=== PATIENT | male | born 1955 | race Caucasian/White ===

== ENCOUNTER 2025-02-16 14:32 | Outpatient (OUT) | payer MEDICARE, OTHER, SELFPAY ==
--- OUTSIDE RECORDS SUMMARY | 2025-02-10 07:19 | XMS_ITS | Continuity of Care Document ---
Author Organization [facility] Address [address] [place] [address] Phone Care Team Providers Care Climbing Guide Name Role Phone Telma Morgan APRN Primary Care Provider Telma Morgan APRN Attending Provider Telma Morgan APRN Referring Provider [phone] Community, Outreach Attending Provider Care Teams Patient Care Team Team Status: Active Member Role Status Dates Telma Morgan APRN CARDROOM ATTENDANT-C Primary Care Provider Active Patient Care Team Team Status: Active Member Role Status Dates Telma Morgan APRN CARDROOM ATTENDANT-C Primary Care Provider, Other Provider Active Start: December 02, 2024 Ron Gonzalez MD Attending Provider Active Start: December 02 Visit Care Team Team Status: Inactive Member Role Status Dates Telma Morgan APRN CARDROOM ATTENDANT-C Primary Care Provider, Attending Provider Active Start: December 10, 2024 End: December 10, 2024 Visit Care Team Team Status: Inactive Member Role Status Dates Telma Morgan APRN CARDROOM ATTENDANT-C Primary Care Provider, Referring Provider Active Start: December 13, 2024 End: December 13, 2024 Outreach Community Attending Provider Active Sta rt: December 13, 2024 End: December 13, 2024 Visit Care Team Team Status: Inactive Member Role Status Dates Telma Morgan APRN CARDROOM ATTENDANTFranck Primary Care Provider, Attending Provider Active Start: January 09, 2025 End: January 09, 2025 Patient Care Team Team Status: Inactive Member Role Status Dates LUIZ Rey Primary Care Provider, Attending Provider Active Start: January 21, 2025 End: January 21, 2025 Patient Care Team Team Status: Inactive Member Role Status Dates LUIZ Rey Primary Care Provider Active Start: February 10, 2025 End: February 10, 2025 Jose Juan Aquino MD Attending Provider Active Star t: February 10, 2025 End: February 10, 2025 Chief Complaint and Reason for Visit Chief Complaint Admit Date R01.1 December 02, 2024 1:12 pm Z12.2 December 10, 2024 12:5 7pm CMP PSA December 13, 2024 8:2 2am M47.816 M54.50 Z98.890 January 09, 2025 7:0 9pm Would like to discuss labs/MRI January 21, 2025 10:22am lumbar stenosis February 10, 2025 10:3 9am Reason for Visit Admit Date Bilateral hip pain January 21, 2025 10:22 am Bulging of intervertebral disc between L 4 and L5 January 21, 2025 10:22am History of back surgery January 21, 2025 1 0:22am Hyperlipidemia January 21, 2025 10:22 am Low back pain January 21, 2025 10:22 am Screening for AAA (abdominal aortic aneu rysm) January 21, 2025 10:22am Smoker January 21, 2025 10:22 am Spondylosis of lumbar spine January 21 10:22am Stage 3 chronic kidney disease January 21, 2025 10:22am Lumbar stenosis without neurogenic layla ication February 10, 2025 10:39am Pain of right sacroiliac joint February 10:39am Allergies, Adverse Reactions, Alerts Allergen Type Severity Reaction Last Updated Verified Status Penicillins Adverse Reaction Moderate Fatigued February 102024 10:52am Yes Active Social History Smoking Status Status Start Date End Date Date of Observa tion Current some day smoker Kane finn 2024 1:58pm Observation Status Observation Response Date of Response Patient Sex Male February 10, 2025 11:19am Assigned Sex Male March [birth year] 57 Problems Active Problems Medical Problem Onset Date Status Medicare annual wellness visit, initial Active Screening for prostate cancer Ac tive Screening for colon cancer Activ e Low back pain Active Pain of right sacroiliac joint A ctive Welcome to Medicare preventive visit Active Stage 3 chronic kidney disease A ctive Screening, anemia, deficiency, iron Active Heart murmur Active Hyperlipidemia Active Screening for metabolic disorder Active Screening for lipid disorders Ac tive Bulging of intervertebral disc between L4 and L5 Active History of back surgery Active Bilateral hip pain Active Screening for AAA (abdominal aortic aneurysm) Active Screening for lung cancer Active Central stenosis of spinal canal Active Spondylosis of lumbar spine Acti ve Smoker Active Lumbar stenosis without neurogenic claudication Active Medications Medication Status Dose Units Route Directions Qty Days St art Date Stop Date End Date Instructions Sod Picosulf-Ma g Ox-Citric Ac (Clenpiq) 10 mg-3.5 gram- 12 gram/175 mL solution Disconti nued 175 ML PO Daily 1 December 01, 2024 12:00a m January 21, 2025 10:29 am please follow instructions provided by Dr. Atkinson's office. Multivit With Min-Folic Acid (Centrum Adult 50 Plus) 80 mcg tablet,chew able Active 1 TAB PO Daily November 11, 2024 12:00a m Procedures Procedure Date Performed Status CT lung screening December 10, 2024 12:58pm comple cristina MR lumbar spine wo/w con January 09, 2025 7:25pm co mpleted Relevant Diagnostic Tests and/or Laboratory Data Laboratory Results Test Date/Time Result Interpretation Reference Range Result Comment Performing Site Corrected White Blood Count December 13, 2024 7:46am 10.4 10*3/uL 4.1-10.[address] [facility] [id number] [address] [facility] [address] Red Blood Count December 13, 2024 7:46am 4.75 10*6/uL 3.90-5.[address] [facility] [id number] [address] [facility] [address] Hemoglobin December 13, 2024 7:46am 15.6 g/dL 13.0-17.[address] [facility] [id number] [address] [facility] [address] Hematocrit December 13, 2024 7:46am 46.4 % 38.8-50.[address] [facility] [id number] [address] [facility] [address] Mean Corpuscular Volume December 13, 2024 7:46am 97.7 fL 83.5-[address] [facility] [id number] [address] [facility] [address] Mean Corpuscular Hemoglobin December 13, 2024 7:46am 32.9 pg 27.5-35.[address] [facility] [id number] [address] [facility] [address] Mean Corpuscular Hemoglobin Concent December 13, 2024 7:46am 33.6 g/dL 32.5-35.[address] [facility] [id number] [address] [place] [address] Red Cell Distribution Width December 13, 2024 7:46am 13.7 % 12.0-14.[address] [facility] [id number] [address] [place] [address] Platelet Count December 13, 2024 7:46am 252 10*3/uL 150-[address] [facility] [id number] [address] [place] [address] Mean Platelet Volume December 13, 2024 7:46am 10.7 fL Above high normal 6.6-10.[address] [facility] [id number] [address] [place] [address] Glucose Level December 13, 2024 7:46am 92 mg/dL 70-100 ADA recommended reference rangeRandom Glucose Reference Range is dependent on time and content of last meal. Glucose of more than 200 mg/dL in a nonstressed, ambulatory subject supports the diagnosis of Diabetes Mellitus. [facility] [id number] [address] [facility] [address] Blood Urea Nitrogen December 13, 2024 7:46am 18 mg/dL 7-[address] [facility] [id number] [address] [place], [place] [address] Creatinine December 13, 2024 7:46am 1.50 mg/dL Above high normal 0.70-1.[address] [facility] [id number] [address] [place], [place] [address] Estimated GFR (CKD-EPI) December 13, 2024 7:46am 50.397 mL/Min [facility] [id number] [address] [facility] [address] Sodium Level December 13, 2024 7:46am 142 mmol/L 136-[address] [facility] [id number] [address] [place] [address] Potassium Level December 13, 2024 7:46am 4.8 mmol/L 3.5-5.[address] [facility] [id number] [address] [facility] [address] Chloride Level December 13, 2024 7:46am 106 mmol/L 98-[address] [facility] [id number] [address] [facility] [address] Carbon Dioxide Level December 13, 2024 7:46am 29.1 mmol/L 21.0-31.[address] [facility] [id number] [address] [place] [address] Anion Gap December 13, 2024 7:46am 11.7 mEq/L 6.0-15.[address] [facility] [id number] [address] [place] [address] Calcium Level December 13, 2024 7:46am 9.8 mg/dL 8.6-10.[address] [facility] [id number] [address] [place] [address] Total Protein December 13, 2024 7:46am 7.9 g/dL 6.4-8.[address] [facility] [id number] [address] [place] [address] Albumin December 13, 2024 7:46am 4.3 g/dL 3.5-5.[address] [facility] [id number] [address] [place] [address] Total Bilirubin December 13, 2024 7:46am 0.5 mg/dL 0.3-1.[address] [facility] [id number] [address] [place] [address] Aspartate Amino Transf (AST/SGOT) December 13, 2024 7:46am 19 U/L 13-[address] [facility] [id number] [address] [place] [address] Alanine Aminotransferas e (ALT/SGPT) December 13, 2024 7:46am 15 U/L 7-[address] [facility] [id number] [address] [place], [place] [address] [place] [address] Alkaline Phosphatase December 13, 2024 7:46am 69 U/L 34-[address] [facility] [id number] [address] [facility] [address] Cholesterol Level December 13, 2024 7:46am 205 mg/dL Above high normal 140-200 Chol less than 200 mg/dl low riskChol 201-239 mg/dl borderline riskChol 240 mg/dl and greater high risk [facility] [id number] [address] [facility] [address] HDL Cholesterol December 13, 2024 7:46am 31 mg/dL 23-92 HDL CHOL ATP-III CLASSIFICATION Cardiovascular RiskHDL > or equal to 60 mg/dL LOWHDL < 40 mg/dL HIGH [facility] [id number] [address] [facility] [address] Triglycerides Reflex December 13, 2024 7:46am 154 mg/dL Above high normal 0-149 TRIG ATP III CLASSIFICATIONTRI G less than 150 mg/dL NormalTRIG 150-199 mg/dL Borderline highTRIG 200-500 mg/dL High TRIG greater than 500 mg/dL Very highStandard traceable to the Center for Disease Conrtrol and Prevention (CDC) test method. [facility] [id number] [address] [facility] [address] LDL Cholesterol, Calculated December 13, 2024 7:46am 143 mg/dL Above high normal 0-100 LDL ATP III CLASSIFICATIONLDL less than 100 mg/dL OptimalLDL 100-129 mg/dL Near or above optimalLDL 130-159 mg/dL Borderline highLDL 160-189 mg/dL HighLDL greater than 189 mg/dL Very high [facility] [id number] [address] [facility] [address] VLDL Cholesterol December 13, 2024 7:46am 30 mg/dL [facility] [id number] [address] [facility] [address] Cholesterol/HDL Ratio December 13, 2024 7:46am 6.6 <5.[address] [facility] [id number] [address] [facility] [address] Prostate Specific Antigen Total December 13, 2024 7:46am 3.130 ng/mL 0.000-4.00 0 Serial tumor marker results determined by assays using different manufacturers or methods may not be comparable.[employer] [facility] automotive parts counter associate and method:[place] DXI, CHEMILUMINESCENT IMMUNOASSAY. [facility] [id number] [address] [place] [address] Pharmacy Creatinine Clearance (Chem December 13, 2024 7:46am N/A [facility] [id number] [address] [place] [address] Diagnostic Imaging Reports Author Michele Pabon [facility] Authored December 10, 2024 2:20 pm Report Dictated Date/Time Dictated By Status Radiology Report December 10, 2024 2:20pm Michele lemos Jr DO completed [facility] [place] [address] CT Scan Report Signed Patient: Deny Ramos MR#: [id number] : 1955 Acct:[id number] Age/Sex: 69 / M ADM Date: 5 Loc: [facility] Room: Type: [facility] Attending Dr: FERMIN Rey APRNC Copies to: Telma Morgan APRN, CNP~ Ordering Provider: Telma Morgan APRN, CNP Date of Service: 12/10/24 CT/CT lung screening: Z12.2 CT CHEST WITHOUT CONTRAST, LOW DOSE SCREENING: CLINICAL DATA: A 69-year old current smoker, smoking for 40 pack-years. COMPARISON: None TECHNIQUE: Noncontrast axial CT scan images of the chest were obtained under the low dose screening CT protocol. Coronal and sagittal reconstructed images were also submitted. FINDINGS: Mediastinum : Suboptimal evaluation due to low-dose technique. Thoracic aorta appears normal in caliber. Pulmonary trunk appears nondilated. No pericardial effusion. No lymphadenopathy. The esophagus is grossly unremarkable. Lungs: No focal consolidation, pneumothorax or pleural effusion. Trachea and distal airways appear patent. Diffuse bronchial wall thickening. Emphysematous changes. Scattered lung scarring. No suspicious noncalcified pulmonary nodule or mass. Upper abdomen: No acute findings. Bony thorax and chest wall: Soft tissues surrounding the chest wall demonstrate no acute findings. Osseous structures demonstrate degenerative change. CT/CT lung screening IMPRESSION: NO SUSPICIOUS PULMONARY NODULE OR MASS. LUNG - RADS Version 1.0 Assessment: Category 1, Negative (No nodules and definitely benign nodules). Management: Continue annual lung screening with LDCT in 12 months. Impression dictated by: Michele Pabon Jr., D.OSammy12/10/2024 2:21 PM Dictation Location: [place] [address] Transcribed By: [facility] 12/10/24 1421 Dictated By: Michele Pabon Jr, DO 12/10/24 1420 Signed By: <Electronically signed by Michele Pabon Jr, DO in OV> 12/10/24 1421 Author Inder Velasquez [facility] Authored January 09, 2025 8:58pm Report Dictated Date/Time Dictated By Status Radiology Report January 09, 2025 8:58pm Inder castaneda II MD completed [facility] [place] [address] MRI Report Signed Patient: Deny Ramos MR#: [id number] : 1955 Acct:[id number] Age/Sex: 69 / M ADM Date: 5 Loc: Room: Type: [facility] Attending Dr: Telma Morgan APRN, NP-C Copies to: Telma Morgan APRN, CNP~ Ordering Provider: Telma Morgan APRN, CNP Date of Service: 01/09/25 MR/MR lumbar spine wo/w con: M47.816 MR lumbar spine wo/w con 01/09/2025 7:31 PM SIGNS AND SYMPTOMS: Low back pain, right hip pain PROTOCOL: Multiplanar multisequence MR images of the lumbar spine with and without IV contrast CONTRAST: 15 mL of intravenous ProHance COMPARISON: 12/02/2024. FINDINGS: There is a levoconvex curvature similar to the prior exam. The bones are otherwise in anatomic alignment. There is moderate to severe disc height loss at L2-L3, L3-4, and L5-S1. There is Modic type I endplate edema at L3-L4 and L5-S1. There is Schmorl's node formation in the endplates at L1, L2, L3, and L4. The conus terminates at the inferior endplate of the T12 vertebral body level. No epidural or paraspinous fluid collection is appreciated. Simple appearing cysts are noted in the right renal cortex. No abnormal postcontrast enhancement. At T12-L1: There is a normal disc, central canal, and neural foramen. At L1-L2: There is a broad-based disc bulge with a focal left subarticular disc protrusion. There is mild spinal canal narrowing with mild left neural foraminal stenosis. At L2-L3: There is a broad-based disc bulge with facet hypertrophy and ligament flavum thickening. There is mild spinal canal narrowing with mild bilateral neural foraminal stenosis. At L3-L4: There is a circumferential disc bulge. There is facet hypertrophy and ligamentum flavum thickening. There is mild spinal canal stenosis with moderate left and severe right neural foraminal narrowing. There is mass effect on the exiting right L3 nerve roots. At L4-L5: There is a circumferential disc bulge with facet hypertrophy. There is mild spinal canal stenosis with severe bilateral neural foraminal narrowing and mass effect on the exiting L4 nerve roots bilaterally. At L5-S1: There is a broad-based disc bulge with endplate osteophyte formation on the left. There is facet hypertrophy left greater than right. There is moderate to severe left and moderate right neural foraminal narrowing with mild spinal canal narrowing. There is mild mass effect on the traversing left S1 nerve roots. MR/MR lumbar spine wo/w con IMPRESSION: At L3-L4: There is a circumferential disc bulge. There is facet hypertrophy and ligamentum flavum thickening. There is mild spinal canal stenosis with moderate left and severe right neural foraminal narrowing. There is mass effect on the exiting right L3 nerve roots. At L4-L5: There is a circumferential disc bulge with facet hypertrophy. There is mild spinal canal stenosis with severe bilateral neural foraminal narrowing and mass effect on the exiting L4 nerve roots bilaterally. At L5-S1: There is a broad-based disc bulge with endplate osteophyte formation on the left. There is facet hypertrophy left greater than right. There is moderate to severe left and moderate right neural foraminal narrowing with mild spinal canal narrowing. There is mild mass effect on the traversing left S1 nerve roots. No abnormal postcontrast enhancement. Impression dictated by: Inder Velasquez M.D. 01/09/2025 9:12 PM Dictation Location: [place] [address] Transcribed By: PWS 01/09/252111 Dictated By: Inder Velasquez II, MD 01/09/252057 Signed By: <Electronically signed by Inder Velasquez II, MD in OV> 01/09/252111 Vital Signs Vital Reading Result Reference Range Collection Date/Time Height 71 [in_i] January 21, 2025 10:25am Weight 77.16 kg January 21, 2025 10:25am Body Temperature 97.7 [degF] 97.6-99.0 January 21, 2 025 10:25am Heart Rate 92 /min 60-100 January 21, 2025 10:25am Oxygen saturation by Pulse oximetry 94 % 95-100 January 21, 2025 10:25 am BP Systolic 140 mm[Hg] 100-140 January 21, 2025 10:25am BP Diastolic 82 mm[Hg] 60-100 January 21, 2025 10:25am BMI (Body Mass Index) 23.7 kg/m2 January 212024 10:25am Height 71 [in_i] February 10, 2025 10:51am Weight 77.40 kg February 10, 2025 10:51am BMI (Body Mass Index) 23.8 kg/m2 February 012024 10:51am Advance Directives Advance Directive Response Recorded Date/ Time Advance Directives No May 4:48pm Insurance Providers Guarantor Deny Ramos Address [address] [facility] [address] Contact Info. Home Phone: Payer Policy Id Coverage Id Subscriber's Name Subscriber Id Effective Date Expiration Date [facility] [id number] Deny Ramos [id number] Medicare [id number] Deny Ramos [id number] [facility] [id number] Deny Ramos [id number] Encounters Encounter Location(s) Arrival/Admit Date Discharge/Depart Date Provider(s) Non-patient / Non-visit [facility] December 02, 2024 1:12pm Ron Gonzalez MD Departed Clinical [facility]-CT [address] December 10, 2024 12:57pm December 10, 2024 12:58pm Telma Morgan APRN CNP Departed Referred [facility]-Community Outreach December 13, 2024 8:22am December 13, 2024 8:23am [facility] Departed Clinical [facility]-MRI [address] [place] January 09, 2025 7:09pm January 09, 2025 7:10pm Telma Morgan APRN CNP Departed Physician/Prov ider [facility] January 21, 2025 10:22am January 21, 2025 11:06am Telma Morgan APRN CNP Departed Physician/Prov ider Office Visit [facility] Physician [facility] Neurosurgery February 10, 2025 10:39am February 10, 2025 11:18am Jose Juan Aquino MD Recent Diagnosis Onset Date Admit Date Bilateral hip pain January 21 10:22am Bulging of intervertebral disc between L4 and L5 January 21, 2025 10:22am History of back surgery January 10:22am Hyperlipidemia January 21, 2025 1 0:22am Low back pain January 21, 2025 1 0:22am Screening for AAA (abdominal aortic aneurysm) January 21, 2025 10:22am Smoker January 21, 2025 1 0:22am Spondylosis of lumbar spine January 21, 2025 10:22am Stage 3 chronic kidney disease M ay 2024 10:22am Lumbar stenosis without neurogenic claudication February 10, 2025 10:39am Pain of right sacroiliac joint J une 2024 10:39am Assessments Diagnosis Onset Date Resolution Status Admit Date Bilateral hip pain acute January 212024 10:22am Bulging of intervertebral di sc between L4 and L5 acute January 21, 2025 10:22am History of back surgery acute M ay 2024 10:22am Hyperlipidemia acute January 21, 2025 10:22am Low back pain acute January 21, 2 025 10:22am Screening for AAA (abdominal aortic aneurysm) acute January 21, 2025 10:22am Smoker acute January 21, 2025 10:22am Spondylosis of lumbar spine acute January 21, 2025 10:22am Stage 3 chronic kidney disease acute January 21, 2025 10:22am Lumbar stenosis without neurogenic claudication acute February 10t 2024 10:39am Pain of right sacroiliac joint acute February 10, 2025 10:39am Plan of Treatment Author Telma Morgan [facility] Authored January 21, 2025 1:53p m MRI discussed, referral plac ed to neurosurgery to evaluate pt due to findings and pain. Lipid panel reviewed with patient. Discussed importance of maintaining an LDL level at specified goal. Discussed associated risk factors of hyperlipidemia including stroke and heart attack. Treatment with medications discussed and we have agrees upon appropriate action of treatment and goals. We discussed starting a statin medication due to overall increased risk for heart attack and stroke. He declines wanting to start this medication at this time and would like to think about this. Discussed dietary modifications, including decreasing red meat consumption, decreased alcohol consumption, avoiding fried foods, and cake and cookies, and sweets. Encouraged increasing fiber in diet and eat a diet rich in omega-3. Encouraged to exercise at least 150 minutes weekly. Barriers to plan of care have been addressed. Follow-up as directed. Patient given a copy of the plan of care. Reviewed with pt his current kidney function. Discussed to increase water intake, as he states that he does not drink water, but drinks several cups of coffee and pop per day. Discussed that needs to drink water instead of the coffee/pop. Will recheck labs in March. Pt verbalzies understanding. Discussed with pt due to history of smoking and age it is recommended for him to have a screening for AAA. He would like to wait until after figuring out what is going on with his back and then will call with when he would like this sent. We discussed possible complications of smoking including risk of heart disease, stroke, lung disease, and increase risk of cancer. Your goal is to quit smoking. The availability, risks, and benefits of medication used to treat nicotine addiction as relevant to you have been discussed. We are working together to achieve these goals with the following plan; barriers to these goals have been discussed. You have been given relevant education handouts and a summary of your care plan. Your next follow-up visit for this problem is six months, we will continue to ask progress for quitting and willingness to quit at each appointment. Future Tests Future scheduled test information is unavailable Pending Tests Test Name Ordered Date Scheduled Date Comprehensive Metabolic Panel January 21, 2025 10: 51am 2 Months Future Visits Future appointment information is unavailable Referrals to Other Providers Reason for Referral Referral Start Date Provider Provider Contact Information Provider Address M51.369 - Other intervertebral disc degeneration, lumbar region without mention of lumbar back pain or lower extremity pain,M47.816 - Spondylosis without myelopathy or radiculopathy, lumbar region,M54.50 - Low back pain, unspecified,Z98.890 - Other specified postprocedural states,M25.551 - Pain in right hip,M25.552 - Pain in left hip,M48.00 - Spinal stenosis, site unspecified January 21, 2025 Jose Jaun Aquino MD Work Phone: [facility] [address], [address] [facility] [address] M53.3 - Sacrococcygeal disorders, not elsewhere classified February 10, 2025 [facility] Work Phone: [address] [facility] [address] Future Procedures Procedure Name Ordered Date Scheduled Date Disability Placard January 21, 2025 11:00am Future Medications Future medication information is unavailable Patient Instructions Instruction Admit Date Low back pain in adults January 21, 2025 1 0:22am Hospital Discharge Instructions Ambulatory Orders* Referral to Pain Management Location: None Selected
--- OUTSIDE RECORDS SUMMARY | 2025-02-16 14:35 | XMS_ITS | Clinical Summary ---
Author Organization [facility] Address [address] [place] [address] Phone Care Team Providers Care Water Jet Loom Fixer Name Role Phone Unavailable Primary Care Provider Unavailabl e Social History Tobacco Use Types Packs/Day Years Used Date Smoking Tobacco: Never Assessed Sex and Gender Information Value Date Recorded Sex Assigned at Not on file Legal Sex Male 10:09 AM EST Gender Identity Not on file Sexual Orientation Not on file Plan of Treatment Not on file
--- OUTSIDE RECORDS SUMMARY | 2025-02-16 14:35 | XMS_ITS | Clinical Summary ---
Author Organization [facility] Address [address] [place] [address] Care Team Providers Care Head Of Strategy Name Role Phone Unavailable Primary Care Provider Unavailabl e Allergies Active Allergy Reactions Criticality Noted Date Comments Bee Venom Unknown 01/24/2023 Medications pantoprazole (Protonix) 40 MG EC tablet 1 (one) time each day at the same time. Active Active Problems No known active problems Family History Medical History Relation Name Comments Cancer Mother Relation Name Status Comments Father Mother Social History Tobacco Use Types Packs/Day Years Used Date Smoking Tobacco: Every Day Cigarettes Passive Smoke Exposure: Current Smokeless Tobacco: Never Tobacco Cessation:Ready to Q uit: No; Counseling Given: Yes Alcohol Use Standard Drinks/Week Comments Never 0 (1 standard drink = 0.6 oz pur e alcohol) caffiene 4+/day coffee Sex and Gender Information Value Date Recorded Sex Assigned at Not on file Legal Sex Male 7:21 PM EDT Gender Identity Not on file Sexual Orientation Not on file Last Filed Vital Signs Vital Sign Reading Time Taken Comments Blood Pressure - - Pulse - - Temperature 36.8 C (98.2 F) 02/05/2023 11:07 AM EDT Respiratory Rate - - Oxygen Saturation - - Inhaled Oxygen Concentration - - Weight 79.4 kg (175 lb) 02/05/2023 11:07 AM EDT Height 177.8 cm (5' 10 ) 02/05/2023 11:07 AM EDT Body Mass Index 25.11 02/05/2023 11:07 AM EDT Plan of Treatment Health Maintenance Due Date Last Done Comments CT Colonography 1956 Colonoscopy 1955 Colorectal Cancer Screening 1955 FIT-DNA 1955 FIT 1956 FOBT 1955 Sigmoidoscopy 1955 Pneumococcal Vaccine: 65+ Years (1 of 1 - PCV) 006 Influenza Vaccine (Season Ended) 2025 Insurance MEDICARE
--- NOTE | 2025-02-16 15:45 | P.CN_ITS ---
Consult Note: HPI Data of Consult Patient: new to practice Consult date: 02/16/25 Requesting Physician: Pradeep Duarte MD Primary Care Provider: MIKA THOMAS Consult Narrative Reason for consult: low back pain Narrative: 69yom who presents for evaluation. longstanding low back pain history that is worsened with ambulation. imaging reviewed, shows multilevel moderate to severe stenosis, as well as multilevel spondylosis. has engaged in a series of provider directed home exercises >6 weeks, without lasting benefit. uses ibuprofen as needed. denies adverse med side effects. cc:: CC: Pradeep Duarte MD Review of Systems ROS Status of ROS 10 or more systems reviewed and unremark able except as noted in history and below Exam Narrative Exam Narrative: Psych-alert and oriented x 3. Attentive and appropriate, constitutionally normal, displays normal mood and affect per situation.? There are no obvious deficits in memory, reasoning, or intellect.? Skin-no obvious rashes, bruising, erythema noted to the patient's area of pain. Extremities- extremities are warm with minimal edema and palpable pulses. Lumbar-no significant tenderness to palpation noted in the lumbar spine and paraspinal musculature.? Pain is elicited with extension, and lateral rotation of the lumbar spine. Range of motion is slightly diminished with these motions due to pain. Facet loading maneuvers are positive bilaterally and do appear to be concordant with the patient's normal complaints of pain.? Sacroiliac - tender to palpation over right PSIS. Positive Nacho's on right. Positive thigh thrust on right. Coordination remains intact.? Gait remains non-antalgic. Assessment and Plan Assessment and Plan (1) Sacroiliac dysfunction: Plan 69yom who presents for evaluation. failed conservative measures, as noted. imaging reviewed, as noted. notes from neurosurg eval reviewed. given symptoms and exam, prudent to attempt right sij injection under fluoroscopic guidance, as recommended by his spinal surgeon. he is in agreement. meds reviewed, no changes. follow up after procedure.
== END 2025-02-16 14:33 | disposition home or self-care (01) ==
PROVIDERS: PCP Nurse Practitioner Family; Visit Provider Anesthesiology
DX: M53.3 Sacrococcygeal disorders, not elsewhere classified (principal)
CPT/HCPCS: G0463

== ENCOUNTER 2025-02-23 09:21 | Day surgery (SDC) | payer MEDICARE, OTHER, SELFPAY ==
[2025-02-23 09:41] VITALS: BP 184/101; PULSE 76; TEMP 37.3; O2SAT 97
[2025-02-23 10:23] VITALS: PULSE 85; O2SAT 98
[2025-02-23 10:24] VITALS: BP 223/105
[2025-02-23] MEDS: BUPIVACAINE HCL 0.25% PF 25 MG/10 ML VIAL 2 ML INJ (10:24)
[2025-02-23] MEDS: IOHEXOL 240 MG/ML - 10 ML VIAL INJ (10:24)
[2025-02-23 10:25] VITALS: BP 221/108; PULSE 80; O2SAT 97
[2025-02-23] MEDS: LIDOCAINE HCL 2% 400 MG/20 ML MDV INJ (10:25)
[2025-02-23] MEDS: METHYLPREDNISOLONE ACETATE 40 MG/ML VIAL INJ (10:25)
--- NOTE | 2025-02-23 10:31 | W.PM.PROCNOT ---
Date of procedure: 02/23/25 Pre-op diagnosis: Pain due to right sacroiliac joint injection Post-op diagnosis: same as pre-op Procedure: Procedure: Right sacroiliac joint injection Medications: Bupivacaine 0.25% 3cc, depomedrol 40mg After informed consent was obtained, the patient was brought to the medical procedure unit and placed in the prone position, when a timeout was completed verifying correct patient, procedure, site, positioning, implant, and/or special equipment.? The skin overlying the area was prepped and draped in standard sterile fashion using alcohol.? A 25-gauge needle was inserted towards the right sacroiliac joint under direct fluoroscopic imaging.? Needle tip was advanced until the joint was encountered.? We instilled a total of 2 mL of solution.? Postoperatively needles were removed.? The patient tolerated the procedure well without complication.? The patient reported reduction in pain symptoms postoperatively. Anesthesia: Local Surgeon: Pradeep Duarte Pathology: none sent Condition: stable Disposition: no change
== END 2025-02-23 10:28 | disposition home or self-care (01) ==
LOC: SURGOUT 09:22
PROVIDERS: PCP Nurse Practitioner Family; Visit Provider Anesthesiology
DX: M53.3 Sacrococcygeal disorders, not elsewhere classified (principal)
CPT/HCPCS: 27096; J0665; J1010; Q9966

== ENCOUNTER 2025-03-04 09:37 | Outpatient (OUT) | payer MEDICARE, OTHER, SELFPAY ==
--- OUTSIDE RECORDS SUMMARY | 2025-03-04 09:38 | XMS_ITS | Clinical Summary ---
Author Organization [facility] Address [address] [place] [address] Care Team Providers Care Polymerization Oven Operator Name Role Phone Unavailable Primary Care Provider [...]
--- NOTE | 2025-03-04 10:04 | PM.CN ---
Consult Note: HPI Data of Consult Patient: known to practice within the last 3 years Consult date: 03/04/25 Requesting Physician: Nurys Winters NP Primary Care Provider: MIKA THOMAS Consult Narrative Reason for consult: low back pain Narrative: 69yom who presents for evaluation. longstanding low back pain history that is worsened with ambulation. imaging reviewed, shows multilevel moderate to severe stenosis, as well as multilevel spondylosis. has engaged in a series of provider directed home exercises >6 weeks, without lasting benefit. uses ibuprofen as needed. denies adverse med side effects. recently underwent right SIJ injection as advised by MARLO Aquino with no improvement while anesthetized or ongoing. cc:: CC: Nurys Winters NP Review of Systems ROS Status of ROS 10 or more systems reviewed and unremarkable except as noted in history and below PFSH PFS Medical History Low back pain �M54.50 - Low back pain, unspecified (ICD-10) Smoker �F17.200 - Nicotine dependence, unspecified, uncomplicated (ICD-10) Surgical History (Updated 02/18/25 @ 14:51 by Yue Altamirano) S/P trigger finger release �Z98.890 - Other specified postprocedural states (ICD-10) S/P shoulder surgery �Z98.890 - Other specified postprocedural states (ICD-10) Meds Home Medications and Allergies Home Medications �Medication �Instructions �Recorded �Confirmed �Type ibuprofen 200 mg tablet (Addaprin) 200 mg PO Q8H 02/18/25 02/18/25 History Allergies Allergy/AdvReac Type Severity Reaction Status Date / Time No Known Drug Allergies Allergy Verified 02/23/25 09:44 Exam Constitutional Documenting provider has reviewed patient's vital signs: yes Common normals: no apparent distress, oriented x3, healthy appearing, alert and well nourished General appearance: cooperative HENTX Common normals: normocephalic, hearing grossly normal bilaterally and moist oral mucous membranes Head and scalp: normocephalic Eye Common normals: PERRL Pupil: PERRL Neck & C-Spine Common normals: full ROM General: normal visual inspection Chest Common normals: inspection of chest normal Respiratory Common normals: normal respiratory effort, no retractions and no use of accessory muscles Back & Pelvis Lumbar spine/lower back: ROM not limited, no pain with ROM, no lumbar spinal tenderness and straight leg raise positive Sacroiliac joints: SI joints not abnormal Other: righ sij negative john(patricks), gaenslens, thigh thrust, compression test no facet loading nontender to facet joints notes significant low back pain within 1 minute of walking, improves instantly with sitting and forward flexion. 100% low back pain 0% leg pain/cramping/spasming Neuro Common normals: oriented x3 Sensorium/orientation: alert Psych Common normals: mental status grossly normal, thought process normal, cooperative, affect normal, speech normal and activity/motor behavior normal Speech: normal speech Thought process: normal thought process Results Additional Findings Additional findings: If on a controlled substance or opioids, I have checked an OARRS report on this patient and there are no aberrancies noted in the prescribing history.��If on a controlled substance or opioid a drug screen was completed and reviewed within the last year, and if there has not been a drug screen completed we ordered one today to monitor higher risk, state monitored pain medication use. As part of providing excellent, safe, comprehensive care, the following was completed at our patient's visit: 1. A medication reconciliation and review to ensure accurate knowledge of current/active medications, including asking our patients to inform us about any wwez-uzl-vehcrez medications or herbal remedies/nutritional supplements/alternative remedies. 2. A review to specifically ensure our patients have had annual screening for screening for depression, screening for tobacco use, and screening for unhealthy alcohol use. For concerning screenings had a discussion with the patient, provided patient education, and recommended follow-up with primary care provider when appropriate. If patient noted with a risk of falling, they received education on strength, gait, and balance training to prevent future risk of falling. Portions of this note may have been carried over from the previous visit and updated as appropriate. Please note this office utilizes paper charting in addition to the electronic medical record. A list of current medications, vitals, and PMH is available there as the clinical staff outside of myself do not have access to [employer] charting during the clinic day operations. As part of providing quality comprehensive care the current medications, vitals, and PMH were reviewed in the paper chart. Assessment and Plan Assessment and Plan (1) Lumbar stenosis with neurogenic claudication: Assessment and Plan: The patient has had over 3 months of moderate to severe low back pain with functional impairment and inadequate response to conservative care including NSAIDS (unless there are contraindication such as concurrent blood thinners), multiple oral or topical pain medications, and home exercise program/physical therapy.� Patient has completed >6 weeks of guided home exercise program and/or formal physical therapy program without relief of their symptoms.� We discussed the risks and benefits of the procedure with the patient, and we are NOT planning on using sedation as outlined in the guidelines from Medicare unless there is a documented reason that sedation would be strongly recommended.�� �The procedure will be completed with fluoroscopic guidance.� (2) Sacroiliac dysfunction: Plan follow up with NS as planned, recommend we trial bilateral L5-S1 TFESI for lumbar stenosis with NC if pt is interested. pt will think about and f/u with NS as planned next week. he is interested in surgical intervention, MRI does show significant multilevel changes with numerous pathologies. f/u 2 weeks after TFESI if we proceed, other bob f/u with NS as planned. pt agreeable.
== END 2025-03-04 09:38 | disposition home or self-care (01) ==
LOC: PM 09:37
PROVIDERS: PCP Nurse Practitioner Family; Visit Provider Nurse Practitioner
DX: M48.062 Spinal stenosis, lumbar region with neurogenic claudication (principal); M53.3 Sacrococcygeal disorders, not elsewhere classified
CPT/HCPCS: G0463

== ENCOUNTER 2025-03-16 08:34 | Day surgery (SDC) | payer MEDICARE, OTHER, SELFPAY ==
--- OUTSIDE RECORDS SUMMARY | 2025-03-16 08:38 | XMS_ITS | Clinical Summary ---
Author Organization [facility] Address [address] [place] [address] Care Team Providers Care Longitudinal Float Operator Name Role Phone Unavailable Primary Care [...] of 1 - PCV) 006 Influenza Vaccine (#1) 2025 Insurance MEDICARE
--- OUTSIDE RECORDS SUMMARY | 2025-03-16 08:38 | XMS_ITS | Clinical Summary ---
Author Organization [facility] Address [address] [place] [address] Phone Care Team Providers Care Zipper Trimmer Hand Name Role Phone Unavailable Primary Care Provider [...]
[2025-03-16 08:42] VITALS: BP 187/92; PULSE 74; TEMP 36.8; O2SAT 98
[2025-03-16] MEDS: BUPIVACAINE HCL 0.25% PF 25 MG/10 ML VIAL INJ (09:57)
[2025-03-16] MEDS: 0.9 % SODIUM CHLORIDE 10 ML SYRINGE - SALINE FLUSH INJ (09:57)
[2025-03-16] MEDS: IOHEXOL 240 MG/ML - 10 ML VIAL INJ (09:58)
[2025-03-16] MEDS: DEXAMETHASONE SOD PHOS 10 MG/ML VIAL INJ (09:58)
[2025-03-16] MEDS: LIDOCAINE HCL 2% 400 MG/20 ML MDV 3 ML INJ (09:58)
[2025-03-16 10:02] VITALS: BP 201/101; BP 217/100; PULSE 67; PULSE 69; O2SAT 99
--- NOTE | 2025-03-16 10:02 | P.ON_ITS ---
Date of procedure: 03/16/25 Pre-op diagnosis: Pain due to lumbar stenosis with neurogenic claudication Post-op diagnosis: same as pre-op Procedure: Procedure: Right L3-4, L4-5 transforaminal epidural steroid injection Medications: Bupivacaine 0.25% 2cc, lidocaine 2% 1cc, dexamethasone 10mg The patient was seen and examined in the preoperative holding area.? Informed consent was obtained and placed on the chart.? Patient was brought to the medical procedure unit and placed in the prone position where a timeout was completed verifying the correct patient, procedure site, position, and planned special equipment using sterile aseptic technique.? Under direct fluoroscopic visualization a 25-gauge Quincke tipped spinal needle was advanced to the designated neural foramen where contrast dye was injected to show adequate spread.? The needle was inserted at level right L3-4. There was no evidence of vascular or adverse uptake.? Epidural spread was appreciated.? The above- mentioned injectate was then placed in a 1.5 mL aliquot preceded by negative aspiration.? The needle was removed. The needle was inserted and the procedure repeated at level right L4-5.? The surgery site was covered.? Patient was taken to the postprocedural recovery area and monitored for an appropriate length of time before found suitable for discharge in the accompaniment of a responsible adult. Anesthesia: Local Surgeon: Pradeep Duarte Pathology: none sent Condition: stable Disposition: no change
== END 2025-03-16 10:02 | disposition home or self-care (01) ==
PROVIDERS: PCP Nurse Practitioner Family; Visit Provider Anesthesiology
DX: M48.062 Spinal stenosis, lumbar region with neurogenic claudication (principal); M54.50 Low back pain, unspecified
CPT/HCPCS: 64483; 64484; J0665; J1100; Q9966

== ENCOUNTER 2025-04-02 13:12 | Outpatient (OUT) | payer MEDICARE, OTHER, SELFPAY ==
--- NOTE | 2025-04-02 13:35 | P.CN_ITS ---
Consult Note: HPI Data of Consult Patient: known to practice within the last 3 years Consult date: 04/02/25 Requesting Physician: Nurys Winters NP Primary Care Provider: MIKA THOMAS Consult Narrative Reason for consult: low back pain Narrative: 70yom who presents for evaluation. longstanding low back pain history that is worsened with ambulation. imaging reviewed, shows multilevel moderate to severe stenosis, as well as multilevel spondylosis. has engaged in a series of provider directed home exercises >6 weeks, without lasting benefit. uses ibuprofen as needed. denies adverse med side effects. recently underwent right SIJ injection and right L3-4 L4-5 TFESI as advised by MARLO Aquino with no improvement while anesthetized or ongoing. Pt notes low back pain 1-2/10 increasing to 10/10 with standing, walking, stairs. improves with sitting and lying. cc:: CC: Nurys Winters NP Review of Systems ROS Status of ROS 10 or more systems reviewed and unremark able except as noted in history and below PFSH PFSH Medical History Low back pain ?M54.50 - Low back pain, unspecified (ICD-10) Smoker ?F17.200 - Nicotine dependence, unspecified, uncomplicated (ICD-10) Surgical History (Updated 02/18/25 @ 14:51 by Yue Altamirano) S/P trigger finger release ?Z98.890 - Other specified postprocedural states (ICD-10) S/P shoulder surgery ?Z98.890 - Other specified postprocedural states (ICD-10) Meds Home Medications and Allergies Home Medications ?Medication ?Instructions ?Recorded ?Confirmed ?Type ibuprofen 200 mg tablet (Addaprin) 200 mg PO Q8H 02/1803/16/25 History Allergies Allergy/AdvReac Type Severity Reaction Status Date / Time No Known Drug Allergies Allergy Verified 03/16/25 08:45 Exam Constitutional Documenting provider has reviewed patient's vital signs: yes Common normals: no apparent distress, oriented x3, healthy appearing, alert and well nourished General appearance: cooperative HENIL Common normals: normocephalic, hearing grossly normal bilaterally and moist oral mucous membranes Head and scalp: normocephalic Eye Common normals: PERRL Pupil: PERRL Neck & C-Spine Common normals: full ROM General: normal visual inspection Chest Common normals: inspection of chest normal Respiratory Common normals: normal respiratory effort, no retractions and no use of accessory muscles Back & Pelvis Lumbar spine/lower back: ROM limited, pain with ROM and lumbar spinal tenderness; straight leg raise positive Sacroiliac joints: SI joints not abnormal Other: positive facet loading bilaterally tenderness noted L3-S1 notes significant low back pain within 1 minute of walking, improves instantly with sitting and forward flexion. 100% low back pain 0% leg pain/cramping/spasming Extremity Common normals: normal to inspection and full ROM Neuro Common normals: oriented x3 Sensorium/orientation: alert Psych Common normals: mental status grossly normal, thought process normal, cooperative, affect normal, speech normal and activity/motor behavior normal Speech: normal speech Thought process: normal thought process Results Additional Findings Additional findings: If on a controlled substance or opioids, I have checked an OARRS report on this patient and there are no aberrancies noted in the prescribing history.??If on a controlled substance or opioid a drug screen was completed and reviewed within the last year, and if there has not been a drug screen completed we ordered one today to monitor higher risk, state monitored pain medication use. As part of providing excellent, safe, comprehensive care, the following was completed at our patient's visit: 1. A medication reconciliation and review to ensure accurate knowledge of current/active medications, including asking our patients to inform us about any njlq-mrj-wzbukug medications or herbal remedies/nutritional supplements/alternative remedies. 2. A review to specifically ensure our patients have had annual screening for screening for depression, screening for tobacco use, and screening for unhealthy alcohol use. For concerning screenings had a discussion with the patient, provided patient education, and recommended follow-up with primary care provider when appropriate. If patient noted with a risk of falling, they received education on strength, gait, and balance training to prevent future risk of falling. Portions of this note may have been carried over from the previous visit and updated as appropriate. Please note this office utilizes paper charting in addition to the electronic medical record. A list of current medications, vitals, and PMH is available there as the clinical staff outside of myself do not have access to [employer] charting during the clinic day operations. As part of providing quality comprehensive care the current medications, vitals, and PMH were reviewed in the paper chart. Assessment and Plan Assessment and Plan (1) Lumbar spondylosis: Assessment and Plan: The patient has had over 3 months of moderate to severe low back pain with functional impairment and inadequate response to conservative care including NSAIDS (unless there are contraindication such as concurrent blood thinners), multiple oral or topical pain medications, and home exercise program/physical therapy.? Patient has completed >6 weeks of guided home exercise program and/or formal physical therapy program without relief of their symptoms.? (2) Lumbar stenosis with neurogenic claudication: (3) Sacroiliac dysfunction: Plan patient no longer following with NS, is not interested in surgical workup as discussed with NS. He does not want rods and screws but has not sought a second opinion, he is interested in delaying surgery until next spring/summer. pt not interested in trialing bilateral L4-5 L5-S1 MBB x2 working towards RFA at this time, not interested in trialing alternative level ANA for lumbar stenosis with NC. f/u PRN
== END 2025-04-02 13:13 | disposition home or self-care (01) ==
LOC: PM 13:13
PROVIDERS: PCP Nurse Practitioner Family; Visit Provider Nurse Practitioner
DX: M47.816 Spondylosis without myelopathy or radiculopathy, lumbar region (principal); M48.062 Spinal stenosis, lumbar region with neurogenic claudication; M53.3 Sacrococcygeal disorders, not elsewhere classified
CPT/HCPCS: G0463